=== PATIENT | female | born 1985 | race Two or more races ===

== ENCOUNTER 2018-10-17 07:58 | Emergency (ER) | payer OTHER ==
[~2018-10-17] VITALS: Ht 165.1 cm; Wt 71.8 kg
[~2018-10-17 07:58] MED LIST: ASCO-96 PO; CHOL500050 PO; FERR142T13 PO; IBUP-1222 PO; LEVO50TA5 PO; OXYC-302 PO
[2018-10-17] MEDS ORDERED: ONDANSETRON 2MG/ML, 2ML ONE (08:28)
[2018-10-17] MEDS ORDERED: FAMOTIDINE 20 MG/2 ML ONE (08:28)
[2018-10-17] MEDS ORDERED: SODIUM CHLORIDE FLUSH 10ML SYR IVF ONE (08:30)
[2018-10-17] MEDS ORDERED: FAMOTIDINE 20 MG/2 ML IVP ONE (08:30)
[2018-10-17] MEDS ORDERED: ONDANSETRON 2MG/ML, 2ML IVPush ONE (08:30)
--- NOTE | 2018-10-17 08:48 | NUR ---
Pt presents for 2 days of NVD starting after eating a meal in [place] on the way back from two weeks in [place]. ABD tender to [facility]. Appears NAD at this time.
[2018-10-17 08:50] LABS: MICROSCOPIC INDICATED
[2018-10-17 08:51] LABS: BASOPHILS # (AUTO) 0.02 x10^3/uL (0-0.1); BASOPHILS % (AUTO) 0 % (0-1); EOSINOPHILS # (AUTO) 0.01 x10^3/uL (0-0.4); EOSINOPHILS % (AUTO) 0 % (1-7); LYMPHOCYTES # (AUTO) 0.83 x10^3/uL (1-3.4); LYMPHOCYTES % (AUTO) 14 % (22-44); MD NO; MEAN CORPUSCULAR HEMOGLOBIN 30.2 pg (27.0-34.8); MEAN CORPUSCULAR HGB CONC 33.9 g/dL (32.4-35.8); MEAN CORPUSCULAR VOLUME 89.2 fL (80-100); MEAN PLATELET VOLUME 10.1 fL (7.4-10.4); MONOCYTES # (AUTO) 0.54 x10^3/uL (0.2-0.8); MONOCYTES % (AUTO) 9 % (2-9); NEUTROPHILS # (AUTO) 4.71 x10^3/uL (1.8-6.8); NEUTROPHILS % (AUTO) 77 % (42-75); PLATELET COUNT 204 x10^3/uL (130-400); RED BLOOD COUNT 4.46 x10^6/uL (3.82-5.3); RED CELL DISTRIBUTION WIDTH 12.4 % (9.6-15.2)
[2018-10-17 08:58] LABS: CULTURE INDICATED? NO
[2018-10-17 08:58] LABS: ALANINE AMINOTRANSFERASE 56 U/L (12-78); ALBUMIN 3.7 g/dL (3.4-5.0); ANION GAP 5 mmol/L (5-15); CALCIUM 8.8 mg/dL (8.5-10.1); CHLORIDE 108 mmol/L (98-107); CREATININE 0.83 mg/dL (0.55-1.02)
[2018-10-17 09:01] LABS: ALKALINE PHOSPHATASE 99 U/L (45-117); BILIRUBIN,TOTAL 0.5 mg/dL (0.2-1.0); TOTAL PROTEIN 7.6 g/dL (6.4-8.2)
[2018-10-17 10:26] VITALS: BP 99/65
== END 2018-10-17 10:33 | disposition home or self-care (01) ==
LOC: ED 08:15
DX: K52.9 Noninfective gastroenteritis and colitis, unspecified (principal)
CPT/HCPCS: 36415; 80053; 81001; 83690; 85025; 96374; 96375; 99283; J2405; J3490

== ENCOUNTER 2018-12-05 08:13 | Outpatient (CLI) | payer OTHER | END 2018-12-05 23:59 | disposition home or self-care (01) | LOC: CFH 08:13 | PROVIDERS: ATTEND Nurse Practitioner Family | DX: K76.0 Fatty (change of) liver, not elsewhere classified (principal); R10.13 Epigastric pain; Z80.0 Family history of malignant neoplasm of digestive organs | CPT/HCPCS: 76700 ==

== ENCOUNTER 2019-01-23 05:59 | Day surgery (SDC) | payer OTHER ==
[~2019-01-23] VITALS: Ht 165.1 cm; Wt 74.7 kg
[~2019-01-23 05:59] MED LIST changes: +ALPR0.5T6 PO; +BIOT25005 PO; +CHOL100011 PO; +CIME200T6 PO; +DEXL60CA2 PO
[2019-01-23] MEDS ORDERED: LACTATED RINGERS 1,000 ML IV SCH (06:21)
[2019-01-23 06:22] VITALS: BP 117/82
[2019-01-23 06:53] LABS: HCG UR SG 1.019 (1.003-1.030)
[2019-01-23] MEDS ORDERED: ONDANSETRON 2MG/ML, 2ML IV PRN (08:30)
[2019-01-23] MEDS ORDERED: FENTANYL PF 100 MCG/2ML IV PRN (08:30)
[2019-01-23] MEDS ORDERED: DIAZEPAM 5 MG/ML, 2ML IVPush PRN (08:30)
== END 2019-01-23 09:45 | disposition home or self-care (01) ==
LOC: OUT 05:59
PROVIDERS: ATTEND Internal Medicine
DX: K29.50 Unspecified chronic gastritis without bleeding (principal); K52.832 Lymphocytic colitis; Z88.8 Allergy status to other drugs, medicaments and biological substances
CPT/HCPCS: 43239; 45380; 81025; 88305; J7120

== ENCOUNTER → 2020-10-25 | Outpatient (CLI) | payer OTHER ==
[~2020-10-25] MED LIST changes: +OMNIPAQUE 350 MG/ML, 100ML BOTTLE ONE
== END | disposition home or self-care (01) ==
LOC: CFH 07:43
PROVIDERS: ATTEND Nurse Practitioner Family
DX: K76.0 Fatty (change of) liver, not elsewhere classified (principal); R94.5 Abnormal results of liver function studies; Z80.0 Family history of malignant neoplasm of digestive organs; Z90.49 Acquired absence of other specified parts of digestive tract
CPT/HCPCS: 74160; Q9967